=== PATIENT | male | born 1985 | race Caucasian/White ===

== ENCOUNTER 2019-09-06 16:46 | Emergency (ER) | payer BC, OTHER ==
[~2019-09-06] VITALS: Ht 172.7 cm; Wt 88.6 kg
[2019-09-06] MEDS ORDERED: PROZ10 PO (17:23)
[2019-09-06] MEDS ORDERED: TRAZ-252 PO (17:23)
[2019-09-06] MEDS ORDERED: GABA-529 PO (17:23)
[2019-09-06 18:47] LABS: AMPHET/METH SCREEN,URINE POSITIVE (NEGATIVE); BARBITURATE SCREEN, URINE NEGATIVE (NEGATIVE); BENZODIAZEPINES SCREEN,URINE NEGATIVE (NEGATIVE); CANNABINOID SCREEN,URINE NEGATIVE (NEGATIVE); COCAINE SCREEN,URINE NEGATIVE (NEGATIVE); METHADONE SCREEN, URINE NEGATIVE (NEGATIVE); OPIATE SCREEN,URINE NEGATIVE (NEGATIVE)
[2019-09-06 18:49] LABS: PHENCYCLIDINE SCREEN,URINE NEGATIVE (NEGATIVE)
[2019-09-06 18:53] LABS: BASOPHILS % (AUTO) 0.3 % (0.0-2.0); EOSINOPHILS % (AUTO) 0 % (1.0-6.0); HEMATOCRIT 44.5 % (41-53); HEMOGLOBIN 15.9 g/dL (13.5-17.5); LYMPHOCYTES # (AUTO) 1.7 K/uL (1.0-4.8); LYMPHOCYTES % (AUTO) 15.7 % (22.0-44.0); MEAN CORPUSCULAR HEMOGLOBIN 34.4 pg (26.0-34.0); MEAN CORPUSCULAR HGB CONC 35.7 G/dL (31.0-37.0); MEAN CORPUSCULAR VOLUME 96 fL (80-100); MONOCYTES # (AUTO) 0.9 K/uL (0.1-1.0); MONOCYTES % (AUTO) 8.4 % (2.0-9.0); NEUTROPHILS # (AUTO) 8.3 K/uL (1.8-7.7); NEUTROPHILS % (AUTO) 75.6 % (40.0-70.0); PLATELET COUNT (AUTO) 250 K/uL (150-450); RED BLOOD CELL COUNT(AUTO) 4.61 MIL/uL (4.50-5.90); RED CELL DISTRIBUTION WIDTH 12.4 % (11.5-14.5)
[2019-09-06 19:17] LABS: ALBUMIN 3.6 g/dL (3.4-5.0); BILIRUBIN,TOTAL 0.9 mg/dL (0.1-1.0); CALCIUM, TOTAL 8.3 mg/dL (8.8-10.5); CHLORIDE 99 mmol/L (98-107); CREATININE 1.03 mg/dL (0.60-1.30); GLOMERULAR FILTR. RATE CALC > 60 mL/min (>60); GLUCOSE,RANDOM 154 mg/dL (70-110); POTASSIUM 3.8 mmol/L (3.5-5.1); SODIUM SERUM 134 mmol/L (136-145); UREA NITROGEN, BLOOD 13 mg/dL (7-18)
[2019-09-06 19:26] LABS: ANION GAP 29 mmol/L (8-16)
[2019-09-06 19:28] LABS: ALKALINE PHOSPHATASE 114 U/L (46-116); CARBON DIOXIDE 6 mmol/L (22-29)
[2019-09-06] MEDS ORDERED: SODIUM CHLORIDE 0.9% 2,000 ML IV ONE (19:45)
[2019-09-06 20:39] LABS: ABG A-A DIFF O2 25.4 mmHg (10-20.0); ABG BASE EXCESS -5.4 mmol/L (-2.0-3.0); ABG CARBOXYHEMOGLOBIN 0.1 % (0.0-1.5); ABG HCO3 21.1 mmol/L (22.0-26.0); ABG METHEMOGLOBIN 0.4 % (0.0-1.5); ABG OXYGEN CONTENT 20.6 mL/dL (15.0-23.0); ABG OXYGEN SATURATION 96.6 % (95.0-98.0); ABG OXYHEMOGLOBIN 96.1 % (94.0-100.0); ABG PCO2 31 mmHg (35-45); ABG PH 7.415 (7.350-7.450); ABG TOTAL HEMOGLOBIN 15.2 G/dL (12.0-18.0); O2 DEVICE,BLOOD GAS ROOM AIR (ROOM AIR); PO2, ARTERIAL BG 87.7 mmHg (92.0-100.0); SITE, BLOOD GAS RT RADIAL; SOURCE, BLOOD GAS ARTERIAL; TEMPERATURE, FAHRENHEIT, BG 98.6 FAHREN (96.0-98.6)
[2019-09-06 20:47] LABS: ALANINE AMINOTRANSFERASE 102 U/L (12-78); ASPARTATE AMINOTRANSFERASE 104 U/L (15-37); TOTAL PROTEIN, SERUM 7.5 g/dL (6.4-8.2)
[2019-09-06 21:43] LABS: POTASSIUM 3.5 mmol/L (3.5-5.1)
[2019-09-06] MEDS ORDERED: SODIUM CHLORIDE 0.9% 1,000 ML IV ONE (22:00)
[2019-09-06 22:19] LABS: SALICYLATE 1.6 mg/dL (2.8-20.0)
[2019-09-06 23:01] LABS: ACETAMINOPHEN < 2 mcg/mL (10-30)
[2019-09-07 00:12] LABS: ANION GAP 24 mmol/L (8-16); CALCIUM, TOTAL 7.5 mg/dL (8.8-10.5); CHLORIDE 103 mmol/L (98-107); CREATININE 0.84 mg/dL (0.60-1.30); GLOMERULAR FILTR. RATE CALC > 60 mL/min (>60); GLUCOSE,RANDOM 141 mg/dL (70-110); POTASSIUM 3.2 mmol/L (3.5-5.1); SODIUM SERUM 136 mmol/L (136-145); UREA NITROGEN, BLOOD 8 mg/dL (7-18)
[2019-09-07 00:14] LABS: CARBON DIOXIDE 9 mmol/L (22-29)
[2019-09-07] MEDS ORDERED: SODIUM CHLORIDE 0.9% 1,000 ML IV ONE (00:30)
[2019-09-07] MEDS ORDERED: POTASSIUM CHLORIDE 20 MEQ ER TABLET PO ONE (00:45)
[2019-09-07 02:02] VITALS: BP 140/95
== END 2019-09-07 02:46 | disposition short-term general hospital (02) ==
LOC: EMS 16:49
DX: F32.9 Major depressive disorder, single episode, unspecified (principal); E86.0 Dehydration; M62.82 Rhabdomyolysis; R79.89 Other specified abnormal findings of blood chemistry; F15.10 Other stimulant abuse, uncomplicated; F10.10 Alcohol abuse, uncomplicated; R45.851 Suicidal ideations; F17.210 Nicotine dependence, cigarettes, uncomplicated; Z79.899 Other long term (current) drug therapy
CPT/HCPCS: 36415; 36600; 71045; 80048; 80051; 80053; 80307; 82550; 82805; 83605; 83690; 84484; 85025; 93005; 96360; 96361 ×2; 99285; G0481; J7030 ×2; G0480